=== PATIENT | female | born 1935 | race Caucasian/White ===

== ENCOUNTER 2018-03-13 13:21 | Emergency (ER) | payer MEDICARE, BC ==
--- NOTE | 2018-03-13 13:37 | ED ---
Fall HPI - General Chief Complaint: Fall Stated Complaint: fall, facial injury Time Seen by Provider: 03/13/18 13:26 Source: patient, RN notes reviewed, old records reviewed Mode of arrival: ambulatory - History of Present Illness Initial Comments: 82-year-old female presents to the emergency department today after falling in her driveway. She was bringing or trash to the edge of the curb and tripped in a hole in her driveway. She reports she landed on the right thigh. She reports it happened at 7:30 in the morning. She does question loss of consciousness that she did sit on the ground for a minute afterwards. She denies any extremity pain, neck pain chest pain, shortness of breath. She states that she has noticed increased swelling around the eye. She denies any actual eye pain or pain with extraocular eye movements. She is not on any blood thinners. - Related Data Home Medications Medication Instructions Recorded Confirmed Citalopram Hydrobromide [CeleXA] 20 mg PO HS 02/05/14 03/13/18 Enalapril [Vasotec] 20 mg PO HS 02/05/14 03/13/18 Hydrochlorothiazide [Hydrodiuril] 12.5 mg PO HS 02/05/14 03/13/18 Levothyroxine Sodium [Synthroid] 25 mcg PO HS 02/05/14 03/13/18 Allergies Allergy/AdvReac Type Severity Reaction Status Date / Time No Known Allergies Allergy Verified 03/13/18 14:21 Review of Systems ROS Statement: Those systems with pertinent positive or pertinent negative responses have been documented in the HPI. ROS Other: All systems not noted in ROS Statement are negative. Past Medical History Past Medical History: Hypertension, Thyroid Disorder History of Any Multi-Drug Resistant Organisms: None Reported Past Surgical History: Breast Surgery, Hysterectomy Additional Past Surgical History / Comment(s): PARTIAL HYSTERECTOMY, BREAST REDUCTION, RIGHT CATARACT. Past Anesthesia/Blood Transfusion Reactions: No Reported Reaction Past Psychological History: Anxiety Smoking Status: Never smoker Past Alcohol Use History: Rare Past Drug Use History: None Reported General Exam - General Exam Comments Initial Comments: 82-year-old female. Alert and oriented. No significant distress. Limitations: no limitations General appearance: alert, in no apparent distress Head exam: Present: atraumatic, normocephalic, normal inspection Eye exam: Present: PERRL, EOMI. Absent: normal appearance (Patient has evidence of significant contusion over the right eye. Eye swollen shut. No pain with EOM,. Small abrasion over R lateral forehead. ), scleral icterus, conjunctival injection, periorbital swelling ENT exam: Present: mucous membranes moist. Absent: normal exam Neck exam: Present: normal inspection. Absent: tenderness, meningismus, lymphadenopathy Respiratory exam: Present: normal lung sounds bilaterally. Absent: respiratory distress, wheezes, rales, rhonchi, stridor Cardiovascular Exam: Present: regular rate, normal rhythm, normal heart sounds. Absent: systolic murmur, diastolic murmur, rubs, gallop, clicks GI/Abdominal exam: Present: soft, normal bowel sounds. Absent: distended, tenderness, guarding, rebound, rigid Extremities exam: Present: normal inspection, full ROM, normal capillary refill. Absent: tenderness, pedal edema, joint swelling, calf tenderness Back exam: Present: normal inspection Neurological exam: Present: alert, oriented X3, CN II-XII intact Psychiatric exam: Present: normal affect, normal mood Course Vital Signs 03/13/18 13:23 Temperature 98.1 F Pulse Rate 90 Respiratory 20 Rate Blood Pressure 163/75 O2 Sat by Pulse 99 Oximetry Medical Decision Making - Medical Decision Making Patient is a pleasant 82-year-old female presents emergency Department after falling in her driveway and hitting the right side of her forehead and eye. It is 7 AM. She rates the emergency department with significant contusion over the right eyelid. has no neck pain. She is no pain with extraocular eye movements. Visual acuity is intact. She does have glasses and does see Dr. Lagos. At this time she complains of no other injury related to her fall. We did complete a computed tomography scan of her brain and facial bones. There is no evidence of any acute fracture or intracranial hemorrhage. There is evidence of significant soft tissue swelling of the right periorbital region. Discussed at this time the Patient will have significant contusion and advised to apply ice over the areas much as possible to help with swelling. Patient has no conjunctival irritation. No evidence of hyphema. Patient at this time will be discharged with close follow-up with PCP referral to see her cook mess. I discussed return parameters. Discussed she is any signs of altered mental status or any other concerning signs or symptoms to return to emergency department for reevaluation. - Radiology Data Radiology results: report reviewed Normal facial bone study. No acute fractures evident. Superficial soft tissue swelling in the right temporal and right periorbital region. CT brain was negative for any acute cranial process. Superficial soft tissue swelling in the right temporal Region. No evidence of acute intracranial hemorrhage. Disposition Clinical Impression: Fall, Forehead contusion, Contusion, eye, right Disposition: HOME SELF-CARE Condition: Good Additional Instructions: Patient has have close follow-up with the cook mess. Ice over the area of swelling. Take anti-inflammatory medication as directed for pain. Patient should be monitored for the next 24-48 hours. If there is any signs of altered mental status, severe vomiting please return to emergency department for reevaluation. Is patient prescribed a controlled substance at d/c from ED?: No Referrals: Isaiah Calabrese DO [Primary Care Provider] - 1-2 days Brian Lagos MD [STAFF PHYSICIAN] - 1-2 days Time of Disposition: 14:37
--- NOTE | 2018-03-13 14:20 | CT ---
EXAMINATION TYPE: CT brain wo con DATE OF EXAM: 03/13/2018 COMPARISON: 07/12/2010 INDICATION: Fall DLP: 1046.72 mGycm, Automated exposure control for dose reduction was used. CONTRAST: None CT of the brain is performed utilizing 3 mm thick sections through the posterior fossa and 3 mm thick sections through the remaining calvarium. Study is performed within 24 hours of arrival to the hosp [facility]. No abnormal hyperdensity is present to suggest an acute intracranial hemorrhage. No mass lesion is evident. No acute infarcts are evident. Ventricles and sulci are appropriate for the patient age. Paranasal sinuses and mastoid air cells within the [id number] are clear. Superficial soft tissue s welling is over the right periorbital and right temporal region. No underlying fracture is evident. Bones appear intact. IMPRESSIONS: 1. No acute intracranial process. 2. Superficial soft tissue swelling right temporal and periorbital region
--- NOTE | 2018-03-13 14:22 | CT ---
EXAMINATION TYPE: CT facial bones wo con DATE OF EXAM: 03/13/2018 COMPARISON: CT brain same date HISTORY: Fall CT DLP: 364.41 mGycm CONTRAST: 0 mL of Isovue 370 The paranasal sinuses are examined in the axial plane at 2 mm thick sections. Reconstructed images i n the coronal plane were obtained. There is dental amalgam scatter artifact The maxillary sinuses are clear. The ethmoid air cells are clear. The sphenoid sinuses are clear. The frontal sinuses are clear. The septum is evaluated. There is septal deviation to the left. The ostiomeatal units are patent. Superficial soft tissue swelling is present over the right temporal right periorbital regions. Medial , lateral, and orbital floor on the right appear intact. Globes are symmetrical. Intraconal and extra conal fat appears normal. IMPRESSIONS: 1. Normal facial bone study. No acute fractures evident. 2. Superficial soft tissue swelling right temporal and right periorbital region
[2018-03-13 14:59] VITALS: BP 158/73; PULSE 105; RESP 18; TEMP 98.5
== END 2018-03-13 14:55 | disposition home or self-care (01) ==
LOC: EC 13:21
DX: S00.83XA Contusion of other part of head, initial encounter (principal); S00.11XA Contusion of right eyelid and periocular area, initial encounter; I10 Essential (primary) hypertension; E07.9 Disorder of thyroid, unspecified; F41.9 Anxiety disorder, unspecified; Z90.710 Acquired absence of both cervix and uterus; Z98.890 Other specified postprocedural states; Z79.899 Other long term (current) drug therapy; W01.0XXA Fall on same level from slipping, tripping and stumbling without subsequent striking against object, initial encounter; Y92.014 Private driveway to single-family (private) house as the place of occurrence of the external cause; Y93.89 Activity, other specified
CPT/HCPCS: 70450; 70486; 99284

== ENCOUNTER 2022-03-28 18:19 | Inpatient (IN) | payer MEDICARE, BC ==
--- NOTE | 2022-03-28 19:56 | CT ---
EXAMINATION TYPE: CT brain vianca wo con DATE OF EXAM: 03/28/2022 COMPARISON: CT brain 03/13/2018 HISTORY: Head injury. Repeated hx of falling backward CT DLP: 1091.4 mGycm Automated exposure control for dose reduction was used. Images of the brain and cervical spine obtained with no contrast. There is cerebral cortical atrophy. There is no mass effect normal Shift. No sign of intracranial hemorrhage. The calvarium is intact. There is mild hypodensity in the periventricular white matter. The skull base is intact. There is normal aeration of the mastoid sinus es. The cervical vertebra have fairly normal spacing and alignment. Posterior elements are intact there i s hypertrophic mild cervical facet arthropathy. No compression fracture. No focal bone destruction. IMPRESSION: There is cerebral atrophy. No acute intracranial abnormality. No change compared to old exam. Minor degenerative changes in the cervical spine. No fracture.
[2022-03-28 20:48] LABS: Appearance,Urine Clear (Clear); Bilirubin,Urine Negative (Negative); Blood,Urine Moderate (Negative); Color,Urine Yellow; Glucose,Urine (UA) Negative (Negative); Ketones,Urine Negative (Negative); Leukocyte Esterase,Urine Trace (Negative); Mucus,Urine Occasional /hpf; Nitrite,Urine Negative (Negative); Protein,Urine 1+ (Negative); RBC,Urine 4 /hpf (0-5); Specific Gravity,Urine 1.025 (1.001-1.035); Squamous Epithelial Cell,Urine <1 /hpf (0-4); Urobilinogen,Urine <2.0 mg/dL (<2.0); WBC,Urine 3 /hpf (0-5)
[2022-03-28] MEDS ORDERED: SODIUM CHLORIDE 0.9% 1,000 ML IV STA (22:48)
--- NOTE | 2022-03-28 22:48 | ED ---
Weakness HPI - General Chief complaint: Weakness Stated complaint: Weakness Time Seen by Provider: 03/28/22 22:47 Source: patient, family, RN notes reviewed, old records reviewed Mode of arrival: wheelchair Limitations: no limitations - History of Present Illness Initial comments: This is a 6-year-old female DF for evaluation today. Patient presents with increased urination and increased frequency some burning with urination. Patient states he feels weak lightheaded dizzy she did fall and hit her head. No blood thinners. No loss of consciousness. Patient denies any other pain from the fall MD Complaint: generalized weakness, lack of energy, difficulty walking -: hour(s) Location: generalized Severity: moderate Severity scale (1-10): 6 Quality: tingling, aching Consistency: intermittent Improves with: none Worsens with: none Context: history of similar Associated Symptoms: denies other symptoms - Related Data Home Medications Medication Instructions Recorded Confirmed Citalopram Hydrobromide [CeleXA] 20 mg PO HS 02/05/14 03/13/18 Enalapril [Vasotec] 20 mg PO HS 02/05/14 03/13/18 Levothyroxine Sodium [Synthroid] 25 mcg PO HS 02/05/14 03/13/18 hydroCHLOROthiazide [Hydrodiuril] 12.5 mg PO HS 02/05/14 03/13/18 Allergies Allergy/AdvReac Type Severity Reaction Status Date / Time No Known Allergies Allergy Verified 03/28/22 18:33 Review of Systems ROS Statement: Those systems with pertinent positive or pertinent negative responses have been documented in the HPI. ROS Other: All systems not noted in ROS Statement are negative. Past Medical History Past Medical History: Hyperlipidemia, Hypertension, Thyroid Disorder History of Any Multi-Drug Resistant Organisms: None Reported Past Surgical History: Breast Surgery, Hysterectomy Additional Past Surgical History / Comment(s): PARTIAL HYSTERECTOMY, BREAST REDUCTION, RIGHT CATARACT. Past Anesthesia/Blood Transfusion Reactions: No Reported Reaction Past Psychological History: Anxiety Smoking Status: Never smoker Past Alcohol Use History: Rare Past Drug Use History: None Reported General Exam Limitations: no limitations General appearance: alert, in no apparent distress Head exam: Present: atraumatic, normocephalic, normal inspection Eye exam: Present: normal appearance, PERRL, EOMI. Absent: scleral icterus, conjunctival injection, periorbital swelling ENT exam: Present: normal exam, mucous membranes moist Neck exam: Present: normal inspection. Absent: tenderness, meningismus, lymphadenopathy Respiratory exam: Present: normal lung sounds bilaterally. Absent: respiratory distress, wheezes, rales, rhonchi, stridor Cardiovascular Exam: Present: regular rate, normal rhythm, normal heart sounds. Absent: systolic murmur, diastolic murmur, rubs, gallop, clicks GI/Abdominal exam: Present: soft, normal bowel sounds. Absent: distended, tenderness, guarding, rebound, rigid Extremities exam: Present: normal inspection, full ROM, normal capillary refill. Absent: tenderness, pedal edema, joint swelling, calf tenderness Back exam: Present: normal inspection Neurological exam: Present: alert, oriented X3, CN II-XII intact Psychiatric exam: Present: normal affect, normal mood Skin exam: Present: warm, dry, intact, normal color. Absent: rash Course Vital Signs 03/28/22 03/28/22 18:27 23:35 Temperature 98.7 F Pulse Rate 97 73 Respiratory 18 18 Rate Blood Pressure 163/73 132/84 O2 Sat by Pulse 96 98 Oximetry - Reevaluation(s) Reevaluation #1: 03/28/22 23:31 Medical records reviewed Reevaluation #2: 03/29/22 00:09 No change in symptoms here in the ER Reevaluation #3: 03/29/22 00:09 Patient informed results and questions answered - Consultations Consultation #1: Spoke with admitting physicians who agree to admit this patient, Dr. Calabrese EKG Findings - EKG Comments: EKG Findings:: EKG is sinus 75 VT 165 QRS 90 QTC 421 Medical Decision Making - Medical Decision Making 86 female to the emergency department for evaluation of weakness, patient has symptomatic UTI. He does have elevated troponin we will admit for trending of troponin cardiology evaluation - Lab Data Result diagrams: 03/28/22 22:59 03/28/22 22:59 Lab Results 03/28/22 03/28/22 03/28/22 Range/Units 20:32 22:59 22:59 WBC 6.9 (3.8-10.6) k/uL RBC 4.57 (3.80-5.40) m/uL Hgb 13.8 (11.4-16.0) gm/dL Hct 41.4 (34.0-46.0) % MCV 90.6 (80.0-100.0) fL MCH 30.1 (25.0-35.0) pg MCHC 33.2 (31.0-37.0) g/dL RDW 13.1 (11.5-15.5) % Plt Count 206 (150-450) k/uL MPV 7.6 Neutrophils % 74 % Lymphocytes % 12 % Monocytes % 10 % Eosinophils % 0 % Basophils % 1 % Neutrophils # 5.1 (1.3-7.7) k/uL Lymphocytes # 0.8 L (1.0-4.8) k/uL Monocytes # 0.7 (0-1.0) k/uL Eosinophils # 0.0 (0-0.7) k/uL Basophils # 0.1 (0-0.2) k/uL PT 11.4 (9.0-12.0) sec INR 1.1 (<1.2) APTT 24.8 (22.0-30.0) sec Sodium (137-145) mmol/L Potassium (3.5-5.1) mmol/L Chloride (98-107) mmol/L Carbon Dioxide (22-30) mmol/L Anion Gap mmol/L BUN (7-17) mg/dL Creatinine (0.52-1.04) mg/dL Est GFR (CKD-EPI)AfAm (>60 ml/min/1.73 sqM) Est GFR (CKD-EPI)NonAf (>60 ml/min/1.73 sqM) Glucose (74-99) mg/dL Plasma Lactic Acid Roe (0.7-2.0) mmol/L Calcium (8.4-10.2) mg/dL Phosphorus (2.5-4.5) mg/dL Magnesium (1.6-2.3) mg/dL Total Bilirubin (0.2-1.3) mg/dL AST (14-36) U/L ALT (4-34) U/L Alkaline Phosphatase (38-126) U/L Troponin I (0.000-0.034) ng/mL NT-Pro-B Natriuret Pep pg/mL Total Protein (6.3-8.2) g/dL Albumin (3.5-5.0) g/dL TSH (0.465-4.680) mIU/L Urine Color Yellow Urine Appearance Clear (Clear) Urine pH 5.0 (5.0-8.0) Ur Specific [place] 1.025 (1.001-1.035) Urine Protein 1+ H (Negative) Urine Glucose (UA) Negative (Negative) Urine Ketones Negative (Negative) Urine Blood Moderate H (Negative) Urine Nitrite Negative (Negative) Urine Bilirubin Negative (Negative) Urine Urobilinogen <2.0 (<2.0) mg/dL Ur Leukocyte Esterase Trace H (Negative) Urine RBC 4 (0-5) /hpf Urine WBC 3 (0-5) /hpf Ur Squamous Epith Cells <1 (0-4) /hpf Urine Mucus Occasional H (None) /hpf 03/28/22 03/28/22 03/28/22 Range/Units 22:59 22:59 22:59 WBC (3.8-10.6) k/uL RBC (3.80-5.40) m/uL Hgb (11.4-16.0) gm/dL Hct (34.0-46.0) % MCV (80.0-100.0) fL MCH (25.0-35.0) pg MCHC (31.0-37.0) g/dL RDW (11.5-15.5) % Plt Count (150-450) k/uL MPV Neutrophils % % Lymphocytes % % Monocytes % % Eosinophils % % Basophils % % Neutrophils # (1.3-7.7) k/uL Lymphocytes # (1.0-4.8) k/uL Monocytes # (0-1.0) k/uL Eosinophils # (0-0.7) k/uL Basophils # (0-0.2) k/uL PT (9.0-12.0) sec INR (<1.2) APTT (22.0-30.0) sec Sodium 135 L (137-145) mmol/L Potassium 3.8 (3.5-5.1) mmol/L Chloride 102 (98-107) mmol/L Carbon Dioxide 22 (22-30) mmol/L Anion Gap 11 mmol/L BUN 24 H (7-17) mg/dL Creatinine 0.96 (0.52-1.04) mg/dL Est GFR (CKD-EPI)AfAm 62 (>60 ml/min/1.73 sqM) Est GFR (CKD-EPI)NonAf 54 (>60 ml/min/1.73 sqM) Glucose 108 H (74-99) mg/dL Plasma Lactic Acid Roe 0.6 L (0.7-2.0) mmol/L Calcium 8.6 (8.4-10.2) mg/dL Phosphorus 3.2 (2.5-4.5) mg/dL Magnesium 1.9 (1.6-2.3) mg/dL Total Bilirubin 0.4 (0.2-1.3) mg/dL AST 45 H (14-36) U/L ALT 21 (4-34) U/L Alkaline Phosphatase 91 (38-126) U/L Troponin I 0.075 H* (0.000-0.034) ng/mL NT-Pro-B Natriuret Pep pg/mL Total Protein 6.8 (6.3-8.2) g/dL Albumin 4.0 (3.5-5.0) g/dL TSH 0.659 (0.465-4.680) mIU/L Urine Color Urine Appearance (Clear) Urine pH (5.0-8.0) Ur Specific [place] (1.001-1.035) Urine Protein (Negative) Urine Glucose (UA) (Negative) Urine Ketones (Negative) Urine Blood (Negative) Urine Nitrite (Negative) Urine Bilirubin (Negative) Urine Urobilinogen (<2.0) mg/dL Ur Leukocyte Esterase (Negative) Urine RBC (0-5) /hpf Urine WBC (0-5) /hpf Ur Squamous Epith Cells (0-4) /hpf Urine Mucus (None) /hpf 03/28/22 Range/Units 22:59 WBC (3.8-10.6) k/uL RBC (3.80-5.40) m/uL Hgb (11.4-16.0) gm/dL Hct (34.0-46.0) % MCV (80.0-100.0) fL MCH (25.0-35.0) pg MCHC (31.0-37.0) g/dL RDW (11.5-15.5) % Plt Count (150-450) k/uL MPV Neutrophils % % Lymphocytes % % Monocytes % % Eosinophils % % Basophils % % Neutrophils # (1.3-7.7) k/uL Lymphocytes # (1.0-4.8) k/uL Monocytes # (0-1.0) k/uL Eosinophils # (0-0.7) k/uL Basophils # (0-0.2) k/uL PT (9.0-12.0) sec INR (<1.2) APTT (22.0-30.0) sec Sodium (137-145) mmol/L Potassium (3.5-5.1) mmol/L Chloride (98-107) mmol/L Carbon Dioxide (22-30) mmol/L Anion Gap mmol/L BUN (7-17) mg/dL Creatinine (0.52-1.04) mg/dL Est GFR (CKD-EPI)AfAm (>60 ml/min/1.73 sqM) Est GFR (CKD-EPI)NonAf (>60 ml/min/1.73 sqM) Glucose (74-99) mg/dL Plasma Lactic Acid Roe (0.7-2.0) mmol/L Calcium (8.4-10.2) mg/dL Phosphorus (2.5-4.5) mg/dL Magnesium (1.6-2.3) mg/dL Total Bilirubin (0.2-1.3) mg/dL AST (14-36) U/L ALT (4-34) U/L Alkaline Phosphatase (38-126) U/L Troponin I (0.000-0.034) ng/mL NT-Pro-B Natriuret Pep 320 pg/mL Total Protein (6.3-8.2) g/dL Albumin (3.5-5.0) g/dL TSH (0.465-4.680) mIU/L Urine Color Urine Appearance (Clear) Urine pH (5.0-8.0) Ur Specific [place] (1.001-1.035) Urine Protein (Negative) Urine Glucose (UA) (Negative) Urine Ketones (Negative) Urine Blood (Negative) Urine Nitrite (Negative) Urine Bilirubin (Negative) Urine Urobilinogen (<2.0) mg/dL Ur Leukocyte Esterase (Negative) Urine RBC (0-5) /hpf Urine WBC (0-5) /hpf Ur Squamous Epith Cells (0-4) /hpf Urine Mucus (None) /hpf - Radiology Data Radiology results: report reviewed (CT brain C-spine chest x-ray negative for acute disease), image reviewed Critical Care Time Critical Care Time: Yes Total Critical Care Time: 31 Disposition Clinical Impression: Dehydration, NSTEMI (non-ST elevated myocardial infarction), Weakness, Dysuria Disposition: ADMITTED IP TO THIS HOSP Condition: Fair Is patient prescribed a controlled substance at d/c from ED?: No Referrals: Isaiah Calabrese DO [Primary Care Provider] - 1-2 days Time of Disposition: 00:10
[2022-03-28 23:16] LABS: Basophils # (A) 0.1 k/uL (0-0.2); Basophils % (A) 1 %; Eosinophils % (A) 0 %; HCT 41.4 % (34.0-46.0); HGB 13.8 gm/dL (11.4-16.0); Lymphocytes # (A) 0.8 k/uL (1.0-4.8); Lymphocytes % (A) 12 %; MCH 30.1 pg (25.0-35.0); MCHC 33.2 g/dL (31.0-37.0); MCV 90.6 fL (80.0-100.0); Mean Platelet Volume 7.6; Monocytes # (A) 0.7 k/uL (0-1.0); Monocytes % (A) 10 %; Neutrophils # (A) 5.1 k/uL (1.3-7.7); Neutrophils % (A) 74 %; Platelet Count 206 k/uL (150-450); RBC 4.57 m/uL (3.80-5.40); RDW 13.1 % (11.5-15.5); WBC 6.9 k/uL (3.8-10.6)
[2022-03-28 23:27] LABS: Calcium 8.6 mg/dL (8.4-10.2); Magnesium 1.9 mg/dL (1.6-2.3); Phosphorus 3.2 mg/dL (2.5-4.5); Potassium 3.8 mmol/L (3.5-5.1); Total Bilirubin 0.4 mg/dL (0.2-1.3); Total Protein 6.8 g/dL (6.3-8.2)
[2022-03-28 23:28] LABS: INR 1.1 (<1.2); Partial Thromboplastin Time 24.8 sec (22.0-30.0); Prothrombin Time 11.4 sec (9.0-12.0)
[2022-03-29] MEDS ORDERED: NALOXONE 0.4 MG/ML 1 ML VIAL IV PRN (00:07)
[2022-03-29] MEDS ORDERED: ONDANSETRON 4 MG/2 ML VIAL IVP PRN (00:07)
[2022-03-29] MEDS ORDERED: MORPHINE SULFATE 4 MG/ML SYRINGE IV PRN (00:07)
--- NOTE | 2022-03-29 00:28 | XR ---
EXAMINATION TYPE: XR chest 1V portable DATE OF EXAM: 03/29/2022 COMPARISON: NONE HISTORY: Chest pain TECHNIQUE: Single view FINDINGS: There is no heart failure nor confluent pneumonic infiltrate. Costophrenic angles are clear . There are no hilar masses. There are chest leads. IMPRESSION: No active cardiopulmonary disease.
[2022-03-29] MEDS: SODIUM CHLORIDE 0.9% 1,000 ML IV SCH ×2 (01:28→14:12)
--- NOTE | 2022-03-29 11:21 | P.CRDCN ---
History of Present Illness Consult date: 03/29/22 Reason for Consult (text): Elevated troponin History of present illness: The patient is an 86-year-old female who presented to the emergency room after experiencing a fall. The patient was ambulating around her house when she became dizzy, falling and hitting her head. She had been experiencing some urinary frequency and dysuria, and was subsequently found to have an acute urinary tract infection. The patient is also positive for COVID-19. Troponins have been drawn and found to be mildly abnormal, therefore cardiology was consulted. The patient has denied any chest pain or chest pressure surrounding this event. She states she was unaware that she was positive for COVID-19, as she has not been having typical associated symptoms. DIAGNOSTICS: EKG shows sinus mechanism without ST or T-wave abnormalities Chest x-ray shows no acute cardiopulmonary disease CT of brain/CT spine shows minor degenerative changes. No acute fracture or abnormality. Lab data: WBC 6.9, hemoglobin 13.8, hematocrit 41.4, platelet 206, sodium 135, potassium BUN 24, creatinine 0.96, magnesium 1.4, AST 45, ALT 21 BNP 320, TSH 0.65, troponin 0.07, 0.04, positive for urinary tract infection, positive for COVID-19 PAST MEDICAL HISTORY: Hypertension, hypothyroidism, depression REVIEW OF SYSTEMS: No fever or chills. No cough or expectoration. No lisbet phoresis. Patient denies headache, dizziness, blurred vision, double vision. Patient denies any stomach discomfort. No nausea, vomiting. No hematochezia. No hematemesis. Denies any black stools or blood in his stools. No muscle weakness or numbness. No chest pain or chest pressure. No difficulty breathing. No orthopnea. PHYSICAL EXAMINATION: This is an 86-year-old female in no apparent distress at the time of my examination. CHEST EXAMINATION: Lungs are clear to auscultation. No chest wall tenderness is noted on palpation or with deep breathing. ABDOMEN: Soft, nontender. Bowel sounds are heard. No organomegaly noted. EXTREMITIES: 2+ peripheral pulses with no evidence of peripheral edema and no calf tenderness noted. NEUROLOGIC EXAMINATION: Patient is awake, alert and oriented x3. FINAL ASSESSMENT AND PLAN: Dizziness, status post mechanical fall Elevated troponin, in the setting of acute COVID-19 infection History of hypertension History of hypothyroidism PLAN: Check orthostatic blood pressures Slowly resume home antihypertensive regimen Continue supportive treatment COVID-19 No further recommendations cardiac standpoint I am dictating on behalf of Dr Silvestre Byrd's history/physical and assessment/plan. Past Medical History Past Medical History: Hyperlipidemia, Hypertension, Thyroid Disorder History of Any Multi-Drug Resistant Organisms: None Reported Past Surgical History: Breast Surgery, Hysterectomy Additional Past Surgical History / Comment(s): PARTIAL HYSTERECTOMY, BREAST REDUCTION, RIGHT CATARACT. Past Anesthesia/Blood Transfusion Reactions: No Reported Reaction Past Psychological History: Anxiety Smoking Status: Never smoker Past Alcohol Use History: Rare Past Drug Use History: None Reported Medications and Allergies Home Medications Medication Instructions Recorded Confirmed Type Citalopram Hydrobromide [CeleXA] 20 mg PO DAILY 02/05/14 03/29/22 History Enalapril [Vasotec] 20 mg PO DAILY 02/05/14 03/29/22 History Levothyroxine Sodium [Synthroid] 25 mcg PO DAILY 02/05/14 03/29/22 History Cetirizine HCl [Zyrtec] 10 mg PO DAILY 03/29/22 03/29/22 History Memantine [Namenda] 10 mg PO BID 03/29/22 03/29/22 History Allergies Allergy/AdvReac Type Severity Reaction Status Date / Time No Known Allergies Allergy Verified 03/29/22 10:05 Physical Exam Vitals: Vital Signs Temp Pulse Resp BP Pulse Ox 03/29/22 09:16 68 18 127/58 97 03/28/22 23:35 73 18 132/84 98 03/28/22 18:27 98.7 F 97 18 163/73 96 Intake and Output 03/28/22 03/29/22 03/29/22 22:59 06:59 14:59 Other: Weight 53.524 kg Results 03/28/22 22:59 03/28/22 22:59 Cardiac Enzymes 03/28/22 03/28/22 03/29/22 Range/Units 22:59 22:59 03:58 AST 45 H (14-36) U/L Troponin I 0.075 H* 0.049 H* (0.000-0.034) ng/mL Coagulation 03/28/22 Range/Units 22:59 PT 11.4 (9.0-12.0) sec APTT 24.8 (22.0-30.0) sec CBC 03/28/22 Range/Units 22:59 WBC 6.9 (3.8-10.6) k/uL RBC 4.57 (3.80-5.40) m/uL Hgb 13.8 (11.4-16.0) gm/dL Hct 41.4 (34.0-46.0) % Plt Count 206 (150-450) k/uL Comprehensive Metabolic Panel 03/28/22 Range/Units 22:59 Sodium 135 L (137-145) mmol/L Potassium 3.8 (3.5-5.1) mmol/L Chloride 102 (98-107) mmol/L Carbon Dioxide 22 (22-30) mmol/L BUN 24 H (7-17) mg/dL Creatinine 0.96 (0.52-1.04) mg/dL Glucose 108 H (74-99) mg/dL Calcium 8.6 (8.4-10.2) mg/dL AST 45 H (14-36) U/L ALT 21 (4-34) U/L Alkaline Phosphatase 91 (38-126) U/L Total Protein 6.8 (6.3-8.2) g/dL Albumin 4.0 (3.5-5.0) g/dL Current Medications Generic Name Dose Route Start Last Admin Trade Name Freq PRN Reason Stop Dose Admin Sodium Chloride 1,000 mls @ 75 mls/hr 03/29/22 00:15 03/29/22 01:28 Saline 0.9% IV 75 mls/hr .[id number] URI Administration Morphine Sulfate 4 mg 03/29/22 00:07 Morphine Sulfate 4 Mg/Ml Syringe IV Q4HR PRN Severe Pain (Scale 7 to 10) Naloxone HCl 0.2 mg 03/29/22 00:07 Naloxone 0.4 Mg/Ml 1 Ml Vial IV Q2M PRN Opioid Reversal Ondansetron HCl 4 mg 03/29/22 00:07 Ondansetron 4 Mg/2 Ml Vial IVP Q8HR PRN Nausea And Vomiting Intake and Output 03/28/22 03/29/22 03/29/22 22:59 06:59 14:59 Other: Weight 53.524 kg 03/28/22 22:59 03/28/22 22:59
[2022-03-29] MEDS: CITALOPRAM HYDROBROMIDE 20 MG TAB PO SCH (14:11)
[2022-03-29] MEDS: LORATADINE 10 MG TAB PO SCH (14:12)
[2022-03-29] MEDS: MEMANTINE 10 MG TAB PO SCH ×2 (14:12→21:51)
[2022-03-29] MEDS: lisinopriL 20 MG TAB PO SCH (14:12)
[2022-03-29] MEDS: LEVOTHYROXINE 25 MCG TAB PO SCH (14:12)
--- NOTE | 2022-03-29 15:37 | P.HPIM ---
History of Present Illness H&P Date: 03/29/22 This is an 86-year-old female who presented to the emergency department with some increased urinary frequency and burning with urination also feeling weak and lightheaded and dizzy that patient reports had been ongoing over the last month or so. Patient did fall and hit her head and underwent CT in the ER showing some cerebral atrophy with no acute intracranial abnormality no change compared to old exam with some mild degenerative changes in the cervical spine with no fractures noted. EKG showed sinus rhythm. Patient did have some mild elevation in troponins most likely a component of COVID-19 as patient was also incidentally found to have COVID-19 positive. Patient is not having any r espiratory symptoms and is currently on room air. Chest x-ray revealed no active cardiopulmonary disease. Patient was started on ceftriaxone for questionable UTI with no urine culture and will add urine culture. Will also initiate subcutaneous Lovenox along with Covid 19 vitamins including zinc, vitamin C, vitamin D. Patient reports she has had falls and weakness that is unexplained and will consult physical therapy for evaluation. Patient has been evaluated by cardiology with no further recommendations other than resuming home cardiac medications. ACS was ruled out. Review Of Systems: Constitutional: No fever, no chills, no night sweats. No weight change. Reports weakness, fatigue or lethargy. No daytime sleepiness. EENT: No headache. No blurred vision or double vision, no loss of vision. No loss of Hearing, no ringing in the ears, no dizziness. No nasal drainage or congestion. No epistaxis. No sore throat. Lungs: No shortness of breath, cough, no sputum production. No wheezing. Cardiovascular: No chest pain, no lower extremity edema. No palpitations. No paroxysmal nocturnal dyspnea. No orthopnea. No lightheadedness or dizziness. No syncopal episodes. Abdominal: No abdominal pain. No nausea, vomiting. No diarrhea. No constipation. No bloody or tarry stools.. Reports loss of appetite. Genitourinary: Reports dysuria, with increased frequency, urgency. No urinary retention. Musculoskeletal: No myalgias. No muscle weakness, no gait dysfunction, no fr equent falls. No back pain. No neck pain. Integumentary: No wounds, no lesions. No rash or pruritus. No unusual bruising. No change in hair or nails. Neurologic: No aphasia. No facial droop. No change in mentation. No head injury. No headache. No paralysis. No paresthesia. Reports weakness with falls Psychiatric: No depression. No anxiety. No mood swings. Endocrine: No abnormal blood sugars. No weight change. No excessive sweating or thirst. No cold intolerance. PHYSICAL EXAMINATION: GENERAL: The patient is alert and oriented x4, thin built elderly female HEENT: Pupils are round and equally reacting to light. EOMI. no scleral icterus. No conjunctival pallor. Normocephalic, atraumatic. No pharyngeal erythema. No thyromegaly. CARDIOVASCULAR: S1 and S2 muffled PULMONARY: diminished breath sounds bilaterally with no wheezing or rhonchi noted. ABDOMEN: soft. Nontender on exam. non-distended, normoactive bowel sounds. No palpable organomegaly. MUSCULOSKELETAL: No joint swelling or deformity. EXTREMITIES: No cyanosis, clubbing, or pedal edema. NEUROLOGICAL: Gross neurological examination did not reveal any focal deficits. Diffuse weakness SKIN: No rashes. Assessment: Weakness with falls, gait dysfunction COVID-19 infection Elevated troponins most likely secondary to above, ACS ruled out by cardiology Possible acute urinary tract infection, present on admission Dysuria and frequency in urination secondary to above Hyperlipidemia Hypertension Hypothyroidism History of anxiety GI prophylaxis DVT prophylaxis Full code Plan: Recommend to continue with current medications and management. Patient reports she follows with Dr. Calabrese in the outpatient setting and is vaccinated for Covid although incidental finding of being Covid positive during ER exam and patient is asymptomatic of respiratory symptoms. Patient with family at the bedside reports she has been progressively getting more weak over the last month and has had falls with gait dysfunction. Patient did have mildly elevated troponin bump on presentation with no reports of chest pain or shortness of breath. Patient did report she did have some dizziness with the fall and has not been eating very well. Cardiology evaluated the patient and ACS was ruled out recommending resuming home cardiac hypertension meds. Will initiate subcutaneous Lovenox along with vitamin C and D and zinc supplements and monitor closely. Recommend repeat labs in the a.m. and will have PT/OT therapy evaluate the patient. The impression and plan of care has been dictated by Mallory Larsen, nurse practitioner as directed. Dr. Santi MD I have performed a history and examination and MDM of this patient, discussed the same with the dictator, and agree with the dictator's assessment and plan as written ,documented as a scribe. Based on total visit time, I have performed more than 50% of the visit. Any additional findings or plans will be noted. Past Medical History Past Medical History: Hyperlipidemia, Hypertension, Thyroid Disorder History of Any Multi-Drug Resistant Organisms: None Reported Past Surgical History: Breast Surgery, Hysterectomy Additional Past Surgical History / Comment(s): PARTIAL HYSTERECTOMY, BREAST REDUCTION, RIGHT CATARACT. Past Anesthesia/Blood Transfusion Reactions: No Reported Reaction Past Psychological History: Anxiety Smoking Status: Never smoker Past Alcohol Use History: Rare Past Drug Use History: None Reported Medications and Allergies Home Medications Medication Instructions Recorded Confirmed Type Citalopram Hydrobromide [CeleXA] 20 mg PO DAILY 02/05/14 03/29/22 History Enalapril [Vasotec] 20 mg PO DAILY 02/05/14 03/29/22 History Levothyroxine Sodium [Synthroid] 25 mcg PO DAILY 02/05/14 03/29/22 History Cetirizine HCl [Zyrtec] 10 mg PO DAILY 03/29/22 03/29/22 History Memantine [Namenda] 10 mg PO BID 03/29/22 03/29/22 History Allergies Allergy/AdvReac Type Severity Reaction Status Date / Time No Known Allergies Allergy Verified 03/29/22 10:05 Physical Exam Vitals: Vital Signs Temp Pulse Resp BP Pulse Ox 03/29/22 09:16 68 18 127/58 97 03/28/22 23:35 73 18 132/84 98 03/28/22 18:27 98.7 F 97 18 163/73 96 Intake and Output 03/28/22 03/29/22 03/29/22 22:59 06:59 14:59 Other: Weight 53.524 kg Results CBC & Chem 7: 03/28/22 22:59 03/28/22 22:59 Labs: Abnormal Lab Results - Last 24 Hours (Table) 03/28/22 03/28/22 03/28/22 Range/Units 20:32 22:59 22:59 Lymphocytes # 0.8 L (1.0-4.8) k/uL Sodium 135 L (137-145) mmol/L BUN 24 H (7-17) mg/dL Glucose 108 H (74-99) mg/dL Plasma Lactic Acid Roe (0.7-2.0) mmol/L AST 45 H (14-36) U/L Troponin I (0.000-0.034) ng/mL Urine Protein 1+ H (Negative) Urine Blood Moderate H (Negative) Ur Leukocyte Esterase Trace H (Negative) Urine Mucus Occasional H (None) /hpf Coronavirus (PCR) (Not Detectd) 03/28/22 03/28/22 03/28/22 Range/Units 22:59 22:59 23:21 Lymphocytes # (1.0-4.8) k/uL Sodium (137-145) mmol/L BUN (7-17) mg/dL Glucose (74-99) mg/dL Plasma Lactic Acid Roe 0.6 L (0.7-2.0) mmol/L AST (14-36) U/L Troponin I 0.075 H* (0.000-0.034) ng/mL Urine Protein (Negative) Urine Blood (Negative) Ur Leukocyte Esterase (Negative) Urine Mucus (None) /hpf Coronavirus (PCR) Detected A (Not Detectd) 03/29/22 Range/Units 03:58 Lymphocytes # (1.0-4.8) k/uL Sodium (137-145) mmol/L BUN (7-17) mg/dL Glucose (74-99) mg/dL Plasma Lactic Acid Roe (0.7-2.0) mmol/L AST (14-36) U/L Troponin I 0.049 H* (0.000-0.034) ng/mL Urine Protein (Negative) Urine Blood (Negative) Ur Leukocyte Esterase (Negative) Urine Mucus (None) /hpf Coronavirus (PCR) (Not Detectd) Thrombosis Risk Factor Assmnt - DVT/VTE Prophylaxis DVT/VTE Prophylaxis: Pharmacologic Prophylaxis ordered Assessment and Plan Time with Patient: Greater than 30
[2022-03-29] MEDS: ENOXAPARIN 40 MG/0.4 ML SYRINGE SQ SCH (18:44)
[2022-03-29] MEDS: ASCORBIC ACID 500 MG TAB PO SCH (18:45)
[2022-03-29] MEDS: ZINC SULFATE 220 MG CAP PO SCH (18:45)
[2022-03-29] MEDS: CHOLECALCIFEROL 25 MCG (1000 IU) TABLET PO SCH (18:45)
[2022-03-30] MEDS: SODIUM CHLORIDE 0.9% 1,000 ML IV SCH ×3 (03:05→20:00)
[2022-03-30] MEDS: LEVOTHYROXINE 25 MCG TAB PO SCH (06:21)
[2022-03-30] MEDS: ZINC SULFATE 220 MG CAP PO SCH (08:50)
[2022-03-30] MEDS: CHOLECALCIFEROL 25 MCG (1000 IU) TABLET PO SCH (08:50)
[2022-03-30] MEDS: ASCORBIC ACID 500 MG TAB PO SCH (08:50)
[2022-03-30] MEDS: lisinopriL 20 MG TAB PO SCH (08:51)
[2022-03-30] MEDS: MEMANTINE 10 MG TAB PO SCH ×2 (08:51→20:46)
[2022-03-30] MEDS: CITALOPRAM HYDROBROMIDE 20 MG TAB PO SCH (08:51)
[2022-03-30] MEDS: ENOXAPARIN 40 MG/0.4 ML SYRINGE SQ SCH (08:51)
[2022-03-30] MEDS: LORATADINE 10 MG TAB PO SCH (08:51)
[2022-03-30 09:43] LABS: Albumin 3.6 g/dL (3.5-5.0); Calcium 8.2 mg/dL (8.4-10.2); Magnesium 1.8 mg/dL (1.6-2.3); Phosphorus 3.2 mg/dL (2.5-4.5); Potassium 3.7 mmol/L (3.5-5.1); Total Bilirubin 0.5 mg/dL (0.2-1.3); Total Protein 6.2 g/dL (6.3-8.2)
[2022-03-30 09:58] LABS: Basophils # (A) 0.1 k/uL (0-0.2); Basophils % (A) 1 %; Eosinophils % (A) 1 %; HCT 40.9 % (34.0-46.0); HGB 13.5 gm/dL (11.4-16.0); Lymphocytes # (A) 0.8 k/uL (1.0-4.8); Lymphocytes % (A) 21 %; MCH 30.4 pg (25.0-35.0); MCHC 33.1 g/dL (31.0-37.0); Mean Platelet Volume 7.9; Monocytes # (A) 0.5 k/uL (0-1.0); Monocytes % (A) 13 %; Neutrophils # (A) 2.3 k/uL (1.3-7.7); Neutrophils % (A) 61 %; Platelet Count 179 k/uL (150-450); RBC 4.44 m/uL (3.80-5.40); WBC 3.8 k/uL (3.8-10.6)
--- NOTE | 2022-03-30 10:19 | P.CNNES ---
History of Present Illness Consult date: 03/30/22 Requesting physician: Mallory Larsen Reason for Consult: weakness, headache History of Present Illness: This is an 86-year-old woman with medical history of hypertension, hyperlipidemia, hypothyroidism who presented emergency department for urinary frequency with burning urination, lower extremity weakness and a fall episode. Is seems that the patient has been feeling lightheadedness and dizziness for the past 1 month. She felt she was dizzy and was inconsistent about if dizziness occurred at rest or with movement but later stated it was with movement. Denies nausea, vomiting, visual disturbance. Yesterday she was trying work on her home on the outside portion and was walking and result fell backward. She felt her bilateral lower extremities were weak and crawled back to the house. She stated her weakness is mostly bilateral thighs. Denies any warning sign prior to the episode. She denies of back pain. Denies any loss of consciousness associated with the fall. Denies history of seizure or stroke. She resides alone. Patient was tested positive to COVID-19 during this hospital stay. Some of the workup during his hospital visit consisted of CBC with differential for the most part is seems unremarkable Chemistry panel was a sodium is 135, glucose is 108, calcium, phosphorus and magnesium are within normal limits. AST is minimally elevated at. TSH is 0.659 at which is within normal limits Troponin is minimally elevated at. As stated above the coleman virus PCR is detected CT of the head is reported as cerebral atrophy. No acute intracranial abnormality. No change compared to old exam. I had a hard time reviewing the CT of the head but it did not appear that the patient has an intraparenchymal hemorrhage. CT cervical spine was reported as mild minor degenerative changes in the ce rvical spine. No fracture. Review of Systems Review of system: The 12 point system was reviewed and apparent positive and negative per HPI. Past Medical History Past Medical History: Hyperlipidemia, Hypertension, Thyroid Disorder History of Any Multi-Drug Resistant Organisms: None Reported Past Surgical History: Breast Surgery, Hysterectomy Additional Past Surgical History / Comment(s): PARTIAL HYSTERECTOMY, BREAST REDUCTION, RIGHT CATARACT. Past Anesthesia/Blood Transfusion Reactions: No Reported Reaction Smoking Status: Never smoker - Past Family History Father History Unknown: Yes Mother History Unknown: Yes Medications and Allergies Home Medications Medication Instructions Recorded Confirmed Type Citalopram Hydrobromide [CeleXA] 20 mg PO DAILY 02/05/14 03/29/22 History Enalapril [Vasotec] 20 mg PO DAILY 02/05/14 03/29/22 History Levothyroxine Sodium [Synthroid] 25 mcg PO DAILY 02/05/14 03/29/22 History Cetirizine HCl [Zyrtec] 10 mg PO DAILY 03/29/22 03/29/22 History Memantine [Namenda] 10 mg PO BID 03/29/22 03/29/22 History Allergies Allergy/AdvReac Type Severity Reaction Status Date / Time No Known Allergies Allergy Verified 03/29/22 10:05 Physical Examination - Vital Signs Vital Signs: Vital Signs Temp Pulse Pulse Resp BP BP Pulse Ox 03/30/22 04:00 98.5 F 71 16 136/65 98 03/30/22 00:00 98.1 F 76 18 135/68 96 03/29/22 20:00 99.3 F 80 16 136/70 95 03/29/22 17:00 99.0 F 78 18 153/79 96 03/29/22 15:32 62 18 126/84 96 03/29/22 09:16 68 18 127/58 97 Intake and Output 03/29/22 03/30/22 03/30/22 22:59 06:59 14:59 Intake Total 1200 118 Balance 1200 118 Intake: Intake, IV Titration 900 Amount Sodium Chloride 0.9% 1, 900 000 ml @ 75 mls/hr IV . [id number] [facility] Rx#:[id number] Oral 300 118 Other: Voiding Method Toilet Toilet # Voids 1 2 # Bowel Movements 1 0 Weight 53.524 kg GENERAL: The patient is lying in bed and is not in acute distress. CHEST: The heart rate is regular rate rhythm. No murmurs to auscultation. No carotid bruit bilaterally. LUNG: Clear to auscultation bilaterally no wheezing noted throughout. Not labored breathing. ABDOMEN/GI: Bowel sounds present in all 4 quadrants. No tenderness to palpation throughout. NEUROLOGICAL: Higher mental function: The patient is awake, alert, oriented to self, place and time. Patient is following commands. No aphasia and no neglect. Cranial nerves: The pupils are round, equal and reactive to light and accommodation. Visual corcoran are full to confrontation throughout. Extraocular movement is intact no nystagmus is noted. Facial sensation is normal to touch throughout. The facial strength is normal throughout. Hearing is normal bilaterally to hand rub. Tongue is midline and moved [id number] without any difficulty. No dysarthria is noted. Shoulder shrug is normal bilaterally. Motor: Walking is slow and taking short step and did not require any assistance. Not swaying towards one side or the other. The strength is 5 over 5 throughou t uppers while lowers is weak but has antigravity and strength is at least 4+ throught.. Normal tone and bulk. Cerebellum: Normal finger to nose heel to fernando bilaterally. Sensation: Sensation is normal to touch throughout. Reflexes (right/left): 2+ throughout except ankles are 1+ bilaterally.. Plantars are mute bilaterally. Results - Laboratory Findings CBC and BMP: 03/30/22 08:28 03/30/22 08:28 Abnormal Lab Findings: Abnormal Labs 03/28/22 03/28/22 03/28/22 20:32 22:59 22:59 Lymphocytes # 0.8 L Sodium 135 L BUN 24 H Glucose 108 H Plasma Lactic Acid Roe AST 45 H Troponin I Urine Protein 1+ H Urine Blood Moderate H Ur Leukocyte Esterase Trace H Urine Mucus Occasional H Coronavirus (PCR) 03/28/22 03/28/22 03/28/22 22:59 22:59 23:21 Lymphocytes # Sodium BUN Glucose Plasma Lactic Acid Roe 0.6 L AST Troponin I 0.075 H* Urine Protein Urine Blood Ur Leukocyte Esterase Urine Mucus Coronavirus (PCR) Detected A 03/29/22 03:58 Lymphocytes # Sodium BUN Glucose Plasma Lactic Acid Roe AST Troponin I 0.049 H* Urine Protein Urine Blood Ur Leukocyte Esterase Urine Mucus Coronavirus (PCR) Assessment and Plan Assessment: Dizziness,/lightheadedness for past one month seems likely due to peripheral than central Fall with bilateral lower extremity weakness: Unknown cause as of now Acute COVID-19 infection Elevated troponin Hypertension Hyperlipidemia History of hypothyroidism Plan: I ordered MRI of the brain since the patient's having dizziness lightheadedness to rule out any peripheral circulation stroke. If patient does have stroke will get rest of stroke work-up (carotid, echo, lipid panel). Ordered MRI L-spine for her lower extremity weakness. If MRI Brain and L-spine is negative, recommend EMG with NCS as outpatient for lowers. Ordered vitamin B12, folate, hemoglobin A1c and orthostatic vitals, CK level. Cardiology team is consulted. PT and OT are consulted Will defer the rest of medical management to the primary team. I commended the patient her to follow-up with a neurologist as an outpatient within 1-2 weeks The patient is discussed with patient and her nurse. Thank you for the consultation. Dr. Le is providing neurology coverage this then Dr. Weathers will start this Saturday A.M. Time with Patient: Greater than 30
--- NOTE | 2022-03-30 13:27 | MR ---
EXAMINATION TYPE: MR brain/lspine wo con DATE OF EXAM: 03/30/2022 COMPARISON: CT brain 03/28/2022 HISTORY: Dizziness, lower extremity weakness and falls CONTRAST: Performed utilizing 0 mL intravenous Gadavist gadolinium contrast. TECHNIQUE: Multiplanar, multiecho imaging on a 3.0 Mckenna magnet is performed through the brain. Stud y is performed within 24 hours of arrival to the hospital. The craniovertebral junction is normal. The pituitary is normal. Diffusion-weighted imaging is performed. No abnormal hyperintensity is present to suggest an acute i ntracranial infarct or acute ischemic change. There are scattered areas of increased signal in T2-weighted surgery covering type sequences within t he brainstem and within periventricular white matter and subcortical white matter, likely on the basi s of chronic white matter ischemic type changes. Ventricles and sulci are prominent for the patient age. IMPRESSIONS: 1. Chronic appearing periventricular and deep white matter ischemic type changes with atrophy. EXAMINATION TYPE: MR brain/lspine wo con DATE OF EXAM: 03/30/2022 COMPARISON: None HISTORY: Dizziness, lower extremity weakness and falls CONTRAST: 0 mL intravenous Gadavist. TECHNIQUE: Multiplanar, multisequence images of the lumbar spine were acquired. FINDINGS: Cord terminates at the L1 level. L5-S1: No significant disc bulge or disc herniation. No spinal canal stenosis. No foraminal stenosi s. L4-L5: Mild broad-based disc bulge is present with mild thecal sac compression. No AP spinal canal st enosis present. There is contact with the exiting nerve roots. Correlate with the radicular symptoms. Mild facet hypertrophy with ligamentum flavum laxity has posterior lateral thecal sac contact. L3-L4: No significant disc bulge or disc herniation. No spinal canal stenosis. Facet hypertrophy and ligamentum flavum laxity has posterior lateral thecal sac compression. Minimal grade 1 spondylolist hesis of L3 anteriorly on L4 may be present. L2-L3: No significant disc bulge or disc herniation. No spinal canal stenosis. Facet hypertrophy and ligamentum flavum laxity and mild posterior lateral thecal sac compression L1-L2: No significant disc bulge or disc herniation. No spinal canal stenosis. No foraminal stenosi s. T12-L1: No significant disc bulge or disc herniation. No spinal canal stenosis. No foraminal stenos is. IMPRESSION: 1. Minimal grade 1 spondylolisthesis of L3 internal 4. 2. Facet hypertrophy and ligamentum flavum laxity with posterior lateral thecal sac compression L3-4, L4-5. 3. Mild disc bulge L4-5 with intrathecal sac fashion.
--- NOTE | 2022-03-30 19:19 | P.PN ---
Subjective Progress Note Date: 03/30/22 This is an 86-year-old female who presented to the emergency department with some increased urinary frequency and burning with urination also feeling weak and lightheaded and dizzy that patient reports had been ongoing over the last month or so. Patient did fall and hit her head and underwent CT in the ER showing some cerebral atrophy with no acute intracranial abnormality no change compared to old exam with some mild degenerative changes in the cervical spine with no fractures noted. EKG showed sinus rhythm. Patient did have some mild elevation in troponins most likely a component of COVID-19 as patient was also incidentally found to have COVID-19 positive. Patient is not having any respir atory symptoms and is currently on room air. Chest x-ray revealed no active cardiopulmonary disease. Patient was started on ceftriaxone for questionable UTI with no urine culture and will add urine culture. Will also initiate subcutaneous Lovenox along with Covid 19 vitamins including zinc, vitamin C, vitamin D. Patient reports she has had falls and weakness that is unexplained and will consult physical therapy for evaluation. Patient has been evaluated by cardiology with no further recommendations other than resuming home cardiac medications. ACS was ruled out. 03/30/2022 Patient is seen and evaluated in follow-up this morning and sitting up in the chair. Neurology consulted and pending for lower extremity weakness. Patient reported to generalized weakness that has been progressive over the last month, but worse over the last few days and fell with the inability to have the str ength to stand. Patient is on room air and denies shortness of breath. Patient is afebrile and is maintained on vitamin and zinc supplements with sub q lovenox. Cardiology has evaluated the patient with no further work up indicated. Resume home medications. Patient is tolerating diet with no reports of nausea or vomiting noted. Review of systems: Constitutional: No reports of fatigue, fever, or chills Cardiovascular: No reports of chest pain or palpitations Respiratory: No reports of shortness of breath or cough GI: No reports of nausea, vomiting, or diarrhea : No reports of dysuria or retention Neurovascular: No reports of weakness or numbness of lower extremities All medications have been reviewed PHYSICAL EXAMINATION: GENERAL: The patient is alert and oriented x4, thin built elderly female HEENT: Pupils are round and equally reacting to light. EOMI. no scleral icterus. No conjunctival pallor. Normocephalic, atraumatic. No pharyngeal erythema. No thyromegaly. CARDIOVASCULAR: S1 and S2 muffled PULMONARY: diminished breath sounds bilaterally with no wheezing or rhonchi n oted. ABDOMEN: soft. Nontender on exam. non-distended, normoactive bowel sounds. No palpable organomegaly. MUSCULOSKELETAL: No joint swelling or deformity. EXTREMITIES: No cyanosis, clubbing, or pedal edema. NEUROLOGICAL: Gross neurological examination did not reveal any focal deficits. SKIN: No rashes. Assessment: Weakness with falls, gait dysfunction COVID-19 infection Elevated troponins most likely secondary to above, ACS ruled out by cardiology Possible acute urinary tract infection, present on admission Dysuria and frequency in urination secondary to above Hyperlipidemia Hypertension Hypothyroidism History of anxiety GI prophylaxis DVT prophylaxis Full code Plan: Recommend to continue with current medications and management. Patient reports she follows with Dr. Calabrese in the outpatient setting and is vaccinated for Covid although incidental finding of being Covid positive during ER exam and patient is asymptomatic of respiratory symptoms. Patient with family at the bedside reports she has been progressively getting more weak over the last month and has had falls with gait dysfunction. Neurology consulted and following and has ordered mri of the LS spine and brain which is pending. Patient did have mildly elevated troponin bump on presentation with no reports of chest pain or shortness of breath. Patient did report she did have some dizziness with the fall and has not been eating very well. Patient reports to eating more today. Cardiology evaluated the patient and ACS was ruled out recommending resuming home cardiac hypertension meds. Continue subcutaneous Lovenox along with vitamin C and D and zinc supplements and monitor closely. Recommend repeat labs in the a.m. and await PT/OT therapy to evaluate the patient. Patient reports she has been up and walking. The impression and plan of care has been dictated by Mallory Larsen, nurse practitioner as directed. Dr. Thea MD I have performed a history and examination and MDM of this patient, discussed the same with the dictator, and agree with the dictator's assessment and plan as written ,documented as a scribe. Based on total visit time, I have performed more than 50% of the visit. Any additional findings or plans will be noted. Objective - Vital Signs Vital signs: Vital Signs Temp 98.4 F 03/30/22 08:00 Pulse 76 03/30/22 08:00 Resp 18 03/30/22 08:00 BP 130/95 03/30/22 08:00 Pulse Ox 97 03/30/22 08:00 FiO2 Intake & Output 03/29/22 03/30/22 03/30/22 18:59 06:59 18:59 Intake Total 1200 118 Balance 1200 118 Weight 53.524 kg Intake: Intake, IV Titration 900 Amount Sodium Chloride 0.9% 1, 900 000 ml @ 75 mls/hr IV . [id number] [facility] Rx#:[id number] Oral 300 118 Other: Voiding Method Toilet # Voids 2 # Bowel Movements 0 - Labs CBC & Chem 7: 03/30/22 08:28 03/30/22 08:28 Labs: Abnormal Lab Results - Last 24 Hours (Table) 03/30/22 03/30/22 Range/Units 08:28 08:28 Lymphocytes # 0.8 L (1.0-4.8) k/uL Calcium 8.2 L (8.4-10.2) mg/dL AST 74 H (14-36) U/L Total Protein 6.2 L (6.3-8.2) g/dL Microbiology - Last 24 Hours (Table) 03/29/22 23:20 Urine Culture - Preliminary Urine,Voided
[2022-03-30] MEDS: guaiFENesin SYRUP 100MG/5ML 200 MG/10 ML CUP PO PRN (20:56)
[2022-03-31] MEDS: SODIUM CHLORIDE 0.9% 1,000 ML IV SCH (04:49)
[2022-03-31] MEDS: LEVOTHYROXINE 25 MCG TAB PO SCH (06:10)
[2022-03-31] MEDS: CHOLECALCIFEROL 25 MCG (1000 IU) TABLET PO SCH (08:46)
[2022-03-31] MEDS: ENOXAPARIN 40 MG/0.4 ML SYRINGE SQ SCH (08:47)
[2022-03-31] MEDS: LORATADINE 10 MG TAB PO SCH (08:47)
[2022-03-31] MEDS: ASCORBIC ACID 500 MG TAB PO SCH (08:47)
[2022-03-31] MEDS: MEMANTINE 10 MG TAB PO SCH ×2 (08:47→20:43)
[2022-03-31] MEDS: CITALOPRAM HYDROBROMIDE 20 MG TAB PO SCH (08:47)
[2022-03-31] MEDS: lisinopriL 20 MG TAB PO SCH (08:47)
[2022-03-31] MEDS: ZINC SULFATE 220 MG CAP PO SCH (08:47)
[2022-03-31 11:24] LABS: Albumin 3.3 g/dL (3.5-5.0); Calcium 8.1 mg/dL (8.4-10.2); Magnesium 1.8 mg/dL (1.6-2.3); Potassium 3.4 mmol/L (3.5-5.1); Total Bilirubin 0.4 mg/dL (0.2-1.3); Total Protein 5.9 g/dL (6.3-8.2)
[2022-03-31] MEDS ORDERED: POTASSIUM CHLORIDE ER 20 MEQ TAB.ER PO STA ×2 (12:41→16:00)
[2022-03-31] MEDS: guaiFENesin SYRUP 100MG/5ML 200 MG/10 ML CUP PO PRN (20:43)
[2022-04-01] MEDS: SODIUM CHLORIDE 0.9% 1,000 ML IV SCH (06:33)
[2022-04-01] MEDS: LEVOTHYROXINE 25 MCG TAB PO SCH (06:33)
[2022-04-01] MEDS: CHOLECALCIFEROL 25 MCG (1000 IU) TABLET PO SCH (10:30)
[2022-04-01] MEDS: LORATADINE 10 MG TAB PO SCH (10:31)
[2022-04-01] MEDS: lisinopriL 20 MG TAB PO SCH (10:31)
[2022-04-01] MEDS: ZINC SULFATE 220 MG CAP PO SCH (10:31)
[2022-04-01] MEDS: ASCORBIC ACID 500 MG TAB PO SCH (10:31)
[2022-04-01] MEDS: ENOXAPARIN 40 MG/0.4 ML SYRINGE SQ SCH (10:31)
[2022-04-01] MEDS: CITALOPRAM HYDROBROMIDE 20 MG TAB PO SCH (10:31)
[2022-04-01] MEDS: MEMANTINE 10 MG TAB PO SCH ×2 (10:31→20:19)
--- NOTE | 2022-04-01 15:59 | P.PN ---
Subjective Progress Note Date: 04/01/22 The patient is an 86-year-old female who is seen in neurologic follow- up on April 01, 2022, via teleneurology. The patient herself reports that she is doing okay today. She says that her arms are strong. She denies back pain and leg pain. She does note that she fell, prior to admission. She says she was unable to get up from the ground, therefore she crawled to her sliding glass door where she was able to open it and crawl into the house. When she got into the house her daughter was present. The patient was also reportedly confused at that time and so EMS was called to the house. The patient reportedly had been getting weaker and weaker over a period of time. The chart has been reviewed Patient has tested positive to COVID-19 during this hospital stay MRI of the brain, performed yesterday, was negative for acute infarct. MRI of the lumbar spine has not been performed yet. Objective - Vital Signs Vital signs: Vital Signs Temp 98.0 F 04/01/22 03:51 Pulse 60 04/01/22 03:51 Resp 16 04/01/22 03:51 BP 173/80 04/01/22 03:51 Pulse Ox 97 04/01/22 03:51 FiO2 Intake & Output 03/31/22 04/01/22 04/01/22 18:59 06:59 18:59 Intake Total 354 Output Total 1500 Balance 354 -1500 Intake: Oral 354 Output: Urine 1500 Other: Voiding Method Bedside Commode Bedside Commode # Voids 1 1 1 # Bowel Movements 1 1 1 - Exam Gen.: The patient is reclining in the bed. She is well-nourished, well-develo ped and in no acute distress. HEENT: Head is atraumatic, normocephalic. Fundus not visualized. There is no scleral icterus. Mucous membranes are moist. Neurological examination Mental status: The patient is awake, alert and oriented 3. Her speech is clear. Cranial nerves: 2-4 grossly intact Motor: Bilateral upper extremity strength 5/5. Bilateral hip flexors 4/5. Right hamstring 3/5. Left hamstring 5/5. Bilateral ankle dorsiflexors 5/5. Right ankle plantar flexor 5/5. Left ankle plantar flexor 4+/5. Deep tendon reflexes not assessed at this time - Labs CBC & Chem 7: 03/30/22 08:28 04/01/22 06:32 Labs: Abnormal Lab Results - Last 24 Hours (Table) 03/31/22 04/01/22 Range/Units 10:05 06:32 Potassium 3.4 L (3.5-5.1) mmol/L Glucose 160 H (74-99) mg/dL Calcium 8.1 L (8.4-10.2) mg/dL AST 101 H (14-36) U/L ALT 35 H (4-34) U/L Creatine Kinase 4283 H* (30-135) U/L CK-MB (CK-2) 3.2 H (0.0-2.4) ng/mL Total Protein 5.9 L (6.3-8.2) g/dL Albumin 3.3 L (3.5-5.0) g/dL Microbiology - Last 24 Hours (Table) 03/29/22 23:20 Urine Culture - Final Urine,Voided Assessment and Plan Assessment: 1. Bilateral lower extremity weakness, most predominant in the proximal muscles(elevated CPK is likely secondary to the patient's fall and crawling on the ground) 2. MRI of brain reveals no evidence of acute hemorrhage or infarct 3. Covid 19 infection which may be contributing to the patient's weakness Plan: 1. Physical therapy evaluation and treatment 2. Case management regarding discharge planning 3. If lower extremity weakness does not improve, consider outpatient EMG 4. Recheck CPK 5. Dr. Jones will assume neurologic coverage of this patient has of April 02, 2022 Time with Patient: Less than 30 (Spent 20 minutes examining patient, reviewing imaging, labs, documentation and preparing a note)
[2022-04-01] MEDS: guaiFENesin SYRUP 100MG/5ML 200 MG/10 ML CUP PO PRN (20:22)
--- NOTE | 2022-04-01 23:49 | P.PN ---
Subjective Progress Note Date: 03/31/22 This is an 86-year-old female who presented to the emergency department with some increased urinary frequency and burning with urination also feeling weak and lightheaded and dizzy that patient reports had been ongoing over the last month or so. Patient did fall and hit her head and underwent CT in the ER showing some cerebral atrophy with no acute intracranial abnormality no change compared to old exam with some mild degenerative changes in the cervical spine with no fractures noted. EKG showed sinus rhythm. Patient did have some mild elevation in troponins most likely a component of COVID-19 as patient was also incidentally found to have COVID-19 positive. Patient is not having any respiratory symptoms and is currently on room air. Chest x-ray revealed no active cardiopulmonary disease. Patient was started on ceftriaxone for questionable UTI with no urine culture and will add urine culture. Will also initiate subcutaneous Lovenox along with Covid 19 vitamins including zinc, vitamin C, vitamin D. Patient reports she has had falls and weakness that is unexplained and will consult physical therapy for evaluation. Patient has been evaluated by cardiology with no further recommendations other than resuming home cardiac medications. ACS was ruled out. 03/30/2022 Patient is seen and evaluated in follow-up this morning and sitting up in the chair. Neurology consulted and pending for lower extremity weakness. Patient reported to generalized weakness that has been progressive over the last month, but worse over the last few days and fell with the inability to have the streng th to stand. Patient is on room air and denies shortness of breath. Patient is afebrile and is maintained on vitamin and zinc supplements with sub q lovenox. Cardiology has evaluated the patient with no further work up indicated. Resume home medications. Patient is tolerating diet with no reports of nausea or vomiting noted. 03/31/2022 Patient is currently sitting on the side of the bed. No complaints of leg weakness. Patient is able to ambulate to the bathroom. Patient is also currently on room air. No nausea vomiting abdominal pain or diarrhea. Denies any dysuria or hematuria. Afebrile. No cough or sputum production. Laboratory showed sodium 139 potassium 3.4 chloride 104 bicarb is 26 BUN 11 creatinine 0.8 and CK level is still elevated at 4283 increased from yesterday. Will be current on IV hydration follow-up CK level tomorrow. Otherwise patient had MRI of the brain done yesterday showed chronic appearing periventricular and deep white matter ischemic type changes with atrophy. Current medications reviewed. Review of systems: Constitutional: No reports of fatigue, fever, or chills Cardiovascular: No reports of chest pain or palpitations Respiratory: No reports of shortness of breath or cough GI: No reports of nausea, vomiting, or diarrhea : No reports of dysuria or retention Neurovascular: No reports of weakness or numbness of lower extremities All medications have been reviewed PHYSICAL EXAMINATION: GENERAL: The patient is alert and oriented x4, thin built elderly female HEENT: Pupils are round and equally reacting to light. EOMI. no scleral icterus. No conjunctival pallor. Normocephalic, atraumatic. No pharyngeal erythema. No thyromegaly. CARDIOVASCULAR: S1 and S2 muffled PULMONARY: diminished breath sounds bilaterally with no wheezing or rhonchi noted. ABDOMEN: soft. Nontender on exam. non-distended, normoactive bowel sounds. No palpable organomegaly. MUSCULOSKELETAL: No joint swelling or deformity. EXTREMITIES: No cyanosis, clubbing, or pedal edema. NEUROLOGICAL: Gross neurological examination did not reveal any focal deficits. SKIN: No rashes. Assessment: Weakness with falls, gait dysfunction likely due to COVID . improved. COVID-19 infection Elevated troponins most likely secondary to above, ACS ruled out by cardiology Possible acute urinary tract infection, present on admission Dysuria and frequency in urination secondary to above Hyperlipidemia Hypertension Hypothyroidism History of anxiety GI prophylaxis DVT prophylaxis Full code Plan: Recommend to continue with current medications and management. Patient reports she follows with Dr. Calabrese in the outpatient setting and is vaccinated for Covid although incidental finding of being Covid positive during ER exam and patient is asymptomatic of respiratory symptoms. Patient with family at the bedside reports she has been progressively getting more weak over the last month and has had falls with gait dysfunction. Neurology consulted and following and has ordered mri of the LS spine and brain which is pending. Patient did have mildly elevated troponin bump on presentation with no reports of chest pain or shortness of breath. Patient did report she did have some dizziness with the fall and has not been eating very well. Patient reports to eating more today. Cardiology evaluated the patient and ACS was ruled out recommending resuming home cardiac hypertension meds. Continue subcutaneous Lovenox along with vitamin C and D and zinc supplements and monitor closely. Recommend repeat labs in the a.m. and await PT/OT therapy to evaluate the patient. Patient reports she has been up and walking. Objective - Vital Signs Vital signs: Vital Signs Temp 98.2 F 03/31/22 08:44 Pulse 68 03/31/22 12:24 Resp 16 03/31/22 12:24 BP 145/72 03/31/22 12:24 Pulse Ox 98 03/31/22 12:24 FiO2 Intake & Output 03/30/22 03/31/22 03/31/22 18:59 06:59 18:59 Intake Total 354 1550 118 Output Total 1150 Balance 354 400 118 Intake: Intake, IV Titration 900 Amount Sodium Chloride 0.9% 1, 900 000 ml @ 75 mls/hr IV . [id number] [facility] Rx#:[id number] Oral 354 650 118 Output: Urine 1150 Other: Voiding Method Bedside Commode Bedside Commode # Voids 1 1 # Bowel Movements 1 1 - Labs CBC & Chem 7: 03/30/22 08:28 04/01/22 06:32 Labs: Abnormal Lab Results - Last 24 Hours (Table) 03/30/22 03/31/22 Range/Units 08:28 10:05 Potassium 3.4 L (3.5-5.1) mmol/L Glucose 160 H (74-99) mg/dL Hemoglobin A1c 6.2 H (0.0-6.0) % Calcium 8.1 L (8.4-10.2) mg/dL AST 101 H (14-36) U/L ALT 35 H (4-34) U/L Creatine Kinase 4283 H* (30-135) U/L Total Protein 5.9 L (6.3-8.2) g/dL Albumin 3.3 L (3.5-5.0) g/dL Microbiology - Last 24 Hours (Table) 03/29/22 23:20 Urine Culture - Final Urine,Voided
--- NOTE | 2022-04-01 23:51 | P.PN ---
Subjective Progress Note Date: 04/01/22 This is an 86-year-old female who presented to the emergency department with some increased urinary frequency and burning with urination also feeling weak and lightheaded and dizzy that patient reports had been ongoing over the last month or so. Patient did fall and hit her head and underwent CT in the ER showing some cerebral atrophy with no acute intracranial abnormality no change compared to old exam with some mild degenerative changes in the cervical spine with no fractures noted. EKG showed sinus rhythm. Patient did have some mild elevation in troponins most likely a component of COVID-19 as patient was also incidentally found to have COVID-19 positive. Patient is not having any respiratory symptoms and is currently on room air. Chest x-ray revealed no active cardiopulmonary disease. Patient was started on ceftriaxone for questionable UTI with no urine culture and will add urine culture. Will also initiate subcutaneous Lovenox along with Covid 19 vitamins including zinc, vitamin C, vitamin D. Patient reports she has had falls and weakness that is unexplained and will consult physical therapy for evaluation. Patient has been evaluated by cardiology with no further recommendations other than resuming home cardiac medications. ACS was ruled out. 03/30/2022 Patient is seen and evaluated in follow-up this morning and sitting up in the chair. Neurology consulted and pending for lower extremity weakness. Patient reported to generalized weakness that has been progressive over the last month, but worse over the last few days and fell with the inability to have the streng th to stand. Patient is on room air and denies shortness of breath. Patient is afebrile and is maintained on vitamin and zinc supplements with sub q lovenox. Cardiology has evaluated the patient with no further work up indicated. Resume home medications. Patient is tolerating diet with no reports of nausea or vomiting noted. 03/31/2022 Patient is currently sitting on the side of the bed. No complaints of leg weakness. Patient is able to ambulate to the bathroom. Patient is also currently on room air. No nausea vomiting abdominal pain or diarrhea. Denies any dysuria or hematuria. Afebrile. No cough or sputum production. Laboratory showed sodium 139 potassium 3.4 chloride 104 bicarb is 26 BUN 11 creatinine 0.8 and CK level is still elevated at 4283 increased from yesterday. Will be current on IV hydration follow-up CK level tomorrow. Otherwise patient had MRI of the brain done yesterday showed chronic appearing periventricular and deep white matter ischemic type changes with atrophy. 04/01/2022 Patient is currently resting in bed. Awake alert [place] x3. No complaints of chest pain or shortness breath. Denies any leg weakness today. Patient is still having elevated CPK level. IV fluids increased to normal saline 120 cc/h. Follow-up CPK level tomorrow. Afebrile. Currently on room air. Current medications reviewed. Review of systems: Constitutional: No reports of fatigue, fever, or chills Cardiovascular: No reports of chest pain or palpitations Respiratory: No reports of shortness of breath or cough GI: No reports of nausea, vomiting, or diarrhea : No reports of dysuria or retention Neurovascular: No reports of weakness or numbness of lower extremities All medications have been reviewed PHYSICAL EXAMINATION: GENERAL: The patient is alert and oriented x4, thin built elderly female HEENT: Pupils are round and equally reacting to light. EOMI. no scleral icterus. No conjunctival pallor. Normocephalic, atraumatic. No pharyngeal erythema. No thyromegaly. CARDIOVASCULAR: S1 and S2 muffled PULMONARY: diminished breath sounds bilaterally with no wheezing or rhonchi noted. ABDOMEN: soft. Nontender on exam. non-distended, normoactive bowel sounds. No palpable organomegaly. MUSCULOSKELETAL: No joint swelling or deformity. EXTREMITIES: No cyanosis, clubbing, or pedal edema. NEUROLOGICAL: Gross neurological examination did not reveal any focal deficits. SKIN: No rashes. Assessment: Weakness with falls, gait dysfunction likely due to COVID . improved. COVID-19 infection Elevated troponins most likely secondary to above, ACS ruled out by cardiology Possible acute urinary tract infection, present on admission Dysuria and frequency in urination secondary to above Hyperlipidemia Hypertension Hypothyroidism History of anxiety GI prophylaxis DVT prophylaxis Full code Plan: Recommend to continue with current medications and management. Patient reports she follows with Dr. Calabrese in the outpatient setting and is vaccinated for Covid although incidental finding of being Covid positive during ER exam and patient is asymptomatic of respiratory symptoms. Patient with family at the bedside reports she has been progressively getting more weak over the last month and has had falls with gait dysfunction. Neurology consulted and following and has ordered mri of the LS spine and brain which is pending. Patient did have mildly elevated troponin bump on presentation with no reports of chest pain or shortness of breath. Patient did report she did have some dizziness with the fall and has not been eating very well. Patient reports to eating more today. Cardiology evaluated the patient and ACS was ruled out recommending resuming home cardiac hypertension meds. Continue subcutaneous Lovenox along with vitamin C and D and zinc supplements and monitor closely. Recommend repeat labs in the a.m. and await PT/OT therapy to evaluate the patient. Patient reports she has been up and walking. Objective - Vital Signs Vital signs: Vital Signs Temp 97.8 F 04/01/22 10:29 Pulse 71 04/01/22 15:55 Resp 15 04/01/22 15:55 BP 198/83 04/01/22 15:55 Pulse Ox 96 04/01/22 15:55 FiO2 Intake & Output 03/31/22 04/01/22 04/01/22 18:59 06:59 18:59 Intake Total 354 118 Output Total 1500 Balance 354 -1500 118 Intake: Oral 354 118 Output: Urine 1500 Other: Voiding Method Bedside Commode Bedside Commode Bedside Commode # Voids 1 1 1 # Bowel Movements 1 1 1 - Labs CBC & Chem 7: 03/30/22 08:28 04/01/22 06:32 Labs: Abnormal Lab Results - Last 24 Hours (Table) 04/01/22 04/01/22 Range/Units 06:32 06:32 Creatine Kinase 5463 H* (30-135) U/L CK-MB (CK-2) 3.2 H (0.0-2.4) ng/mL
[2022-04-02] MEDS: SODIUM CHLORIDE 0.9% 1,000 ML IV SCH ×4 (00:46→20:21)
[2022-04-02] MEDS: guaiFENesin SYRUP 100MG/5ML 200 MG/10 ML CUP PO PRN (03:50)
[2022-04-02] MEDS: LEVOTHYROXINE 25 MCG TAB PO SCH (05:58)
[2022-04-02] MEDS: lisinopriL 20 MG TAB PO SCH (09:11)
[2022-04-02] MEDS: CHOLECALCIFEROL 25 MCG (1000 IU) TABLET PO SCH (09:12)
[2022-04-02] MEDS: MEMANTINE 10 MG TAB PO SCH ×2 (09:12→20:22)
[2022-04-02] MEDS: CITALOPRAM HYDROBROMIDE 20 MG TAB PO SCH (09:12)
[2022-04-02] MEDS: ZINC SULFATE 220 MG CAP PO SCH (09:12)
[2022-04-02] MEDS: ENOXAPARIN 40 MG/0.4 ML SYRINGE SQ SCH (09:12)
[2022-04-02] MEDS: ASCORBIC ACID 500 MG TAB PO SCH (09:12)
[2022-04-02] MEDS: LORATADINE 10 MG TAB PO SCH (09:12)
[2022-04-02 09:22] LABS: Basophils % (A) 1 %; Eosinophils # (A) 0.1 k/uL (0-0.7); Eosinophils % (A) 4 %; HCT 42.3 % (34.0-46.0); HGB 13.7 gm/dL (11.4-16.0); Hypochromasia Slight; Lymphocytes # (A) 0.7 k/uL (1.0-4.8); Lymphocytes % (A) 23 %; MCH 30.2 pg (25.0-35.0); MCHC 32.3 g/dL (31.0-37.0); MCV 93.4 fL (80.0-100.0); Mean Platelet Volume 7.7; Monocytes # (A) 0.2 k/uL (0-1.0); Monocytes % (A) 6 %; Neutrophils % (A) 64 %; Platelet Count 215 k/uL (150-450); RBC 4.53 m/uL (3.80-5.40); RDW 12.7 % (11.5-15.5); WBC 3.1 k/uL (3.8-10.6)
[2022-04-02 09:39] LABS: Calcium 8.4 mg/dL (8.4-10.2)
[2022-04-02 10:31] LABS: Potassium 4.5 mmol/L (3.5-5.1)
[2022-04-02] MEDS ORDERED: amLODIPine 2.5 MG TAB PO SCH (11:45)
[2022-04-02] MEDS ORDERED: amLODIPine 2.5 MG TAB PO STA (14:20)
[2022-04-02] MEDS ORDERED: DEXTROSE 50% SYRINGE 50 ML IVP PRN ×2 (16:19)
--- NOTE | 2022-04-02 16:27 | P.PN ---
Subjective Progress Note Date: 04/02/22 This is an 86-year-old female admitted with generalized bilateral lower extremity weakness, elevated CK attributed to fall and crawling on the ground and tested positive for COVID-19 infection. Evaluated by neurology with workup noted. Brain MRI reviewed by neurology, reporting negative for acute hemorrhage or infarct. Evaluated by PT with recommendations noted. Remains hypertensive, positive diarrhea. Good diet intake, consuming 100%, denies nausea or vomiting. Denies abdominal pain. Maintaining O2 sats in the high 90s on room air. Denies lightheadedness, dizziness or focal deficits. Urine culture negative Objective - Vital Signs Vital signs: Vital Signs Temp 98.4 F 04/02/22 12:18 Pulse 72 04/02/22 15:10 Resp 15 04/02/22 15:10 BP 194/78 04/02/22 15:10 Pulse Ox 97 04/02/22 15:10 FiO2 Intake & Output 04/01/22 04/02/22 04/02/22 18:59 06:59 18:59 Intake Total 236 400 240 Output Total 1900 Balance 236 -1500 240 Intake: Oral 236 400 240 Output: Urine 1900 Other: Voiding Method Bedside Commode Bedside Commode Bedside Commode # Voids 1 2 1 # Bowel Movements 1 1 - Exam GENERAL: Sitting up in bed, alert and oriented X 3,NAD HEENT: Pupils are round and equally reacting to light. EOMI. no scleral icterus. No conjunctival pallor. Normocephalic, atraumatic. CARDIOVASCULAR: S1 and S2 muffled. PULMONARY: Bilateral air entry, bilateral bases diminished with no wheezing or rhonchi noted. ABDOMEN: soft, nontender, non-distended, normoactive bowel sounds. No guarding. EXTREMITIES: No cyanosis, clubbing, or pedal edema. NEUROLOGICAL: Cranial nerves II through XII grossly intact SKIN: Warm and dry,No rashes. - Labs CBC & Chem 7: 04/02/22 08:38 04/02/22 08:38 Labs: Abnormal Lab Results - Last 24 Hours (Table) 04/02/22 04/02/22 Range/Units 08:38 08:38 WBC 3.1 L (3.8-10.6) k/uL Lymphocytes # 0.7 L (1.0-4.8) k/uL Glucose 147 H (74-99) mg/dL Creatine Kinase 4815 H* (30-135) U/L Assessment and Plan Assessment: Weakness with falls, gait dysfunction likely due to COVID . improved. COVID-19 infection Diarrhea, most likely secondary to the above, ruling out C. difficile Elevated troponins most likely secondary to above, ACS ruled out by cardiology Hyperlipidemia Hypertension Hypothyroidism History of anxiety Diabetes mellitus, A1c 6.2 Plan: Continue on current medication regime ,monitoring and symptomatic treatment. Stool studies ordered, ruling out C. difficile, Repeat CK, antihypertensives ordered, close monitoring of BP. Follow closely with neurology-discussing possible lumbar MRI.PT eval pending. The impression and plan of care has been dictated as directed. : I performed a history and examination of this patient, discussed the same with the dictator. I agree with the dictator's note ,documented as a scribe. Any additional findings or plans will be noted.
[2022-04-02 17:08] LABS: Glucose,Whole Blood 98 mg/dL (70-110)
[2022-04-02] MEDS: INSULIN ASPART (NovoLOG) 100 UNIT/ML VIAL SQ SCH ×2 (17:14→20:20)
[2022-04-02 20:18] LABS: Glucose,Whole Blood 141 mg/dL (70-110)
[2022-04-03] MEDS: LEVOTHYROXINE 25 MCG TAB PO SCH (06:21)
[2022-04-03] MEDS: INSULIN ASPART (NovoLOG) 100 UNIT/ML VIAL SQ SCH ×2 (06:21→12:17)
[2022-04-03 06:22] LABS: Glucose,Whole Blood 108 mg/dL (70-110)
--- NOTE | 2022-04-03 08:45 | P.PN ---
Subjective Progress Note Date: 04/02/22 Patient was seen for a follow-up. Patient came to the hospital because she suffered from a fall, and could not get up from the ground, therefore she crawled to her sliding glass door. She was able to open it and crawled into the house. When she got into the house, her daughter was present, who noticed that patient was confused. Patient has been getting weaker and weaker over a period of time. She feels her strength has mostly returned back to baseline. She has been walking with a walker. Patient complaining of some pain in the thigh region. Denies any new neurological symptoms. Denies any low back pain. Telemetry monitoring showing sinus rhythm and 60-70. Patient has tested positive to COVID-19 during this hospital stay MRI of the brain was negative for acute infarct. Objective - Vital Signs Vital signs: Vital Signs Temp 98.4 F 04/02/22 12:18 Pulse 72 04/02/22 15:10 Resp 15 04/02/22 15:10 BP 194/78 04/02/22 15:10 Pulse Ox 97 04/02/22 15:10 FiO2 Intake & Output 04/02/22 04/02/22 04/03/22 06:59 18:59 06:59 Intake Total 400 480 Output Total 1900 Balance -1500 480 Intake: Oral 400 480 Output: Urine 1900 Other: Voiding Method Bedside Commode Bedside Commode # Voids 2 3 # Bowel Movements 3 - Exam Patient's mental status, speech and language functions are normal. Cranial nerves are normal. Muscle strength is normal in upper extremities 5/5. Bilateral hip flexion are 5-, ankle dorsiflexion 5/5. Sensations equal. No ataxia. - Labs CBC & Chem 7: 04/02/22 08:38 04/02/22 08:38 Labs: Abnormal Lab Results - Last 24 Hours (Table) 04/02/22 04/02/22 Range/Units 08:38 08:38 WBC 3.1 L (3.8-10.6) k/uL Lymphocytes # 0.7 L (1.0-4.8) k/uL Glucose 147 H (74-99) mg/dL Creatine Kinase 4815 H* (30-135) U/L Assessment and Plan Assessment: 1. Bilateral lower extremity weakness, most predominant in the proximal muscles(elevated CPK is likely secondary to the patient's fall and crawling on the ground) 2. MRI of brain reveals no evidence of acute hemorrhage or infarct 3. Covid 19 infection which may be contributing to the patient's weakness 3. Elevated liver enzymes. Plan: 1. Physical therapy evaluation and treatment 2. Neurologically patient is clear for discharge, if cleared by PT and OT. 3. If lower extremity weakness does not improve, consider outpatient EMG 4. Recheck CPK and LFTs. Patient's most recent CPK 4815 slightly better than the previous day of 5463 on 04/01/2022. Hemoglobin A1c 6.2. Vitamin B12 526, folate > 20.0.
[2022-04-03] MEDS: MEMANTINE 10 MG TAB PO SCH (08:58)
[2022-04-03] MEDS: CITALOPRAM HYDROBROMIDE 20 MG TAB PO SCH (08:58)
[2022-04-03] MEDS: ENOXAPARIN 40 MG/0.4 ML SYRINGE SQ SCH (08:58)
[2022-04-03] MEDS: ASCORBIC ACID 500 MG TAB PO SCH (08:58)
[2022-04-03] MEDS: CHOLECALCIFEROL 25 MCG (1000 IU) TABLET PO SCH (08:58)
[2022-04-03] MEDS: ZINC SULFATE 220 MG CAP PO SCH (08:59)
[2022-04-03] MEDS: LORATADINE 10 MG TAB PO SCH (08:59)
[2022-04-03] MEDS: lisinopriL 20 MG TAB PO SCH (08:59)
[2022-04-03] MEDS ORDERED: amLODIPine 5 MG TAB PO SCH (09:00)
[2022-04-03 11:17] LABS: ALT 65 U/L (4-34); AST 160 U/L (14-36); African American GFR (CKD) >90 (>60 ml/min/1.73 sqM); Alkaline Phosphatase 83 U/L (38-126); Anion Gap 12 mmol/L; Bilirubin, Delta 0.3 mg/dL (0.0-0.2); Bilirubin,Unconjugated 0.3 mg/dL (0.0-1.1); Blood Urea Nitrogen 11 mg/dL (7-17); Carbon Dioxide 28 mmol/L (22-30); Chloride 96 mmol/L (98-107); Glucose 106 mg/dL (74-99); Magnesium 1.8 mg/dL (1.6-2.3); Non-African American GFR(CKD) 82 (>60 ml/min/1.73 sqM); Potassium 3.6 mmol/L (3.5-5.1); Sodium 136 mmol/L (137-145); Total Bilirubin 0.6 mg/dL (0.2-1.3); Total Protein 6.9 g/dL (6.3-8.2)
[2022-04-03 11:33] LABS: Creatine Kinase 2862 U/L (30-135)
[2022-04-03 11:43] LABS: Glucose,Whole Blood 123 mg/dL (70-110)
[2022-04-03 11:51] VITALS: BP 174/77; PULSE 68; RESP 15; TEMP 97.6
--- NOTE | 2022-04-03 14:55 | P.DS ---
Providers Date of admission: 03/29/22 00:07 Expected date of discharge: 04/03/22 Attending physician: Isaiah Calabrese Consults: 03/29/22 00:07 Consult Physician Routine Consulting Provider: Arielle Gerber Consult Reason/Comments: nstemi Do you want consulting provider notified?: Yes 03/30/22 07:16 Consult Physician Routine Consulting Provider: Good Michelle Consult Reason/Comments: weakness, headache Do you want consulting provider notified?: Yes Primary care physician: Isaiah Calabrese Hospital Course: Final Diagnoses: Weakness with falls, gait dysfunction likely due to COVID . improved. COVID-19 infection Diarrhea, most likely secondary to the above, ruled out C. difficile, resolved Elevated troponins most likely secondary to above, ACS ruled out by cardiology Hyperlipidemia Hypertension, Norvasc added to med regimen Hypothyroidism History of anxiety Diabetes mellitus, A1c 6.2 Vitamin B12 326, folate greater than 20 Hospital course:This is an 86-year-old female admitted with generalized bilateral lower extremity weakness, elevated CK attributed to fall and crawling on the ground and tested positive for COVID-19 infection. Evaluated by neurology with workup noted. Brain MRI reviewed by neurology, reporting negative for acute hemorrhage or infarct. Evaluated by PT with recommendations noted. Remains hypertensive, positive diarrhea. Good diet intake, consuming 100%, denies nausea or vomiting. Denies abdominal pain. Maintaining O2 sats in the high 90s on room air. Denies lightheadedness, dizziness or focal deficits. Urine culture negative Norvasc added to med regime for hypertension . IV fluids discontinued, CK continue to improve, currently down to 2862 . Good diet intake, consuming 100% with no nausea vomiting . Diarrhea has resolved. Denies chest pain, palpitations or shortness of breath. Ambulating in room with walker, reports near baseline . Denies lightheadedness, dizziness or focal deficits. Evaluated by a PT with home/home care recommended at discharge .Evaluated by neurology, workup completed, brain MRI reviewed reported negative for acute infarct. Significant clinical improvement. Cleared by neurology for discharge, r ecommending potential outpatient EMG if needed. Patient will be discharged home today in stable condition with guarded prognosis. The impression and plan of care has been dictated as directed. : I performed a history and examination of this patient, discussed the same with the dictator. I agree with the dictator's note ,documented as a scribe. Any additional findings or plans will be noted. Patient Condition at Discharge: Stable Plan - Discharge Summary Discharge Rx Participant: Yes New Discharge Prescriptions: New Zinc Sulfate [Orazinc] 220 mg PO DAILY #30 cap Famotidine [Pepcid] 20 mg PO DAILY #30 tablet amLODIPine [Norvasc] 5 mg PO DAILY #30 tab guaiFENesin SYRUP 100MG/5ML [Robitussin] 200 mg PO Q6HR PRN ml PRN Reason: Cough Ascorbic Acid [Vitamin C] 500 mg PO BID tab Cholecalciferol [Vitamin D3 (25 Mcg = 1000 Iu)] 100 mcg PO DAILY tab Aspirin EC [Ecotrin Low Dose] 81 mg PO DAILY #60 tab Continue Levothyroxine Sodium [Synthroid] 25 mcg PO DAILY Enalapril [Vasotec] 20 mg PO DAILY Citalopram Hydrobromide [CeleXA] 20 mg PO DAILY Memantine [Namenda] 10 mg PO BID Cetirizine HCl [Zyrtec] 10 mg PO DAILY Discharge Medication List Citalopram Hydrobromide [CeleXA] 20 mg PO DAILY 02/05/14 [History] Enalapril [Vasotec] 20 mg PO DAILY 02/05/14 [History] Levothyroxine Sodium [Synthroid] 25 mcg PO DAILY 02/05/14 [History] Cetirizine HCl [Zyrtec] 10 mg PO DAILY 03/29/22 [History] Memantine [Namenda] 10 mg PO BID 03/29/22 [History] Ascorbic Acid [Vitamin C] 500 mg PO BID tab 04/02/22 [Rx] Aspirin EC [Ecotrin Low Dose] 81 mg PO DAILY #60 tab 04/02/22 [Rx] Cholecalciferol [Vitamin D3 (25 Mcg = 1000 Iu)] 100 mcg PO DAILY tab 04/02/22 [Rx] Famotidine [Pepcid] 20 mg PO DAILY #30 tablet 04/02/22 [Rx] Zinc Sulfate [Orazinc] 220 mg PO DAILY #30 cap 04/02/22 [Rx] guaiFENesin SYRUP 100MG/5ML [Robitussin] 200 mg PO Q6HR PRN ml 04/02/22 [Rx] amLODIPine [Norvasc] 5 mg PO DAILY #30 tab 04/03/22 [Rx] Follow up Appointment(s)/Referral(s): Isaiah Calabrese DO [Primary Care Provider] - [facility] Days [facility] Visiting Nurse, [NON-STAFF] - Activity/Diet/Wound Care/Special Instructions: Walker delivered by [facility] - be sure patient takes her walker home with her at time of discharge . Complete Covid quarantine as advised Discharge Disposition: HOME WITH HOME HEALTH SERVICES
== END 2022-04-03 15:40 | disposition home health service (06) | DRG 178 ==
LOC: EC 18:19 → 3SCARD 03-29 00:07
PROVIDERS: ADMIT Family Medicine; ATTEND Family Medicine
DX: U07.1 COVID-19 (principal); N39.0 Urinary tract infection, site not specified; R79.89 Other specified abnormal findings of blood chemistry; R53.1 Weakness; E11.9 Type 2 diabetes mellitus without complications; E86.0 Dehydration; G31.89 Other specified degenerative diseases of nervous system; F32.A Depression, unspecified; M50.30 Other cervical disc degeneration, unspecified cervical region; I10 Essential (primary) hypertension; R29.6 Repeated falls; M43.16 Spondylolisthesis, lumbar region; E78.5 Hyperlipidemia, unspecified; E03.9 Hypothyroidism, unspecified; Z79.890 Hormone replacement therapy; M47.896 Other spondylosis, lumbar region; F41.9 Anxiety disorder, unspecified; W19.XXXA Unspecified fall, initial encounter; Z79.899 Other long term (current) drug therapy; Z90.711 Acquired absence of uterus with remaining cervical stump; Z91.81 History of falling
CPT/HCPCS: 36415; 70450; 70551; 71045; 72125; 72148; 80048; 80053; 80076; 81001; 82550; 82553; 82607; 82746; 83036; 83605; 83735; 83880; 84100; 84132; 84443; 84484; 85025; 85610; 85730; 87086; 87324; 87635; 93005; 96361; 96365; 96366; 99291